=== PATIENT | male | born 1975 | race American Indian/Alaskan Native ===

== ENCOUNTER 2020-08-15 06:44 | Day surgery (SDC) | payer BC ==
[~2020-08-15 06:44] MED LIST: ceFAZolin/STERILE WATER 2 GM/20 ML SYRINGE IV NR
--- NOTE | 2020-08-15 07:25 | Anesthesia Consultation ---
Anesthesia Consult and Med Hx Date of service: 08/15/20 - Airway Anesthetic Teeth Evaluation: Good ROM Head & Neck: Adequate Mental/Hyoid Distance: Adequate Mallampati Class: Class II Intubation Access Assessment: Possibly Difficult - Pulmonary Exam CTA: Yes - Cardiac Exam Cardiac Exam: RRR - Pre-Operative Health Status ASA Pre-Surgery Classification: ASA2 Proposed Anesthetic Plan: General - Pulmonary Hx Smoking: No Hx Asthma: Yes ( CHILD ONLY) Hx Sleep Apnea: Yes (DX SLEEP APNEA , NO CPAP USE) - Cardiovascular System Hx Hypertension: Yes (X 3 YRS) - Central Nervous System Hx Psychiatric Problems: No - Hematic Hx Anemia: No - Other Systems Hx Cancer: No
--- NOTE | 2020-08-15 07:25 | Anesthesia Day of Surgery ---
Anesthesia Day of Surgery - Day of Surgery Patient Examined: Yes Patient H&P Reviewed: Yes Patient is NPO: Yes
[2020-08-15] MEDS ORDERED: MIDAZOLAM 2 MG/2 ML INJ IV NR (07:27)
[2020-08-15] MEDS ORDERED: LACTATED RINGERS 1,000 ML IV SCH (07:30)
[2020-08-15] MEDS ORDERED: HYDROmorphone 1 MG/1 ML INJ ONE (07:35)
[2020-08-15] MEDS ORDERED: propofoL 200 MG/20 ML VIAL IV ONE (07:35)
[2020-08-15] MEDS ORDERED: LIDOCAINE MPF (2%) 20 MG/1 ML VIAL 5 ML ONE (07:35)
[2020-08-15] MEDS ORDERED: ONDANSETRON 4 MG/2 ML INJ ONE (08:40)
[2020-08-15] MEDS ORDERED: KETOROLAC 30 MG/1 ML INJ ONE (08:40)
--- NOTE | 2020-08-15 08:44 | Short Stay Summary ---
Short Stay Documentation Date of service: 08/15/20 - History H&P: obtained from office Past Medical History: No medical history - Allergies and Medications Current Medications: Allergies No Known Allergies Allergy (Verified 08/13/20 10:20) Home Medications Medication Instructions Recorded Confirmed Last Taken Type Lisinopril [Zestril] 5 mg PO DAILY 08/13/20 08/13/20 Unknown History Active Medications Cefazolin Sodium (Cefazolin/Sterile Water 2 Gm/20 Ml Syringe) 2 gm IV PREOP NR Stop: 08/15/20 23:59 Lactated Ringer's (Lactated Ringers) 1,000 mls @ 100 mls/hr IV DIRECT CHRIS Midazolam HCl (Midazolam 2 Mg/2 Ml Inj) 2 mg IV ONCE NR Stop: 08/15/20 20:00 - Brief post op/procedure progress note Date of procedure: 08/15/20 Pre-op diagnosis: urethral stricture Post-op diagnosis: other (bladder stone) Procedure: cysto, dviu, rpg, removal bladder stone Anesthesia: GETA Surgeon: SARBJIT HENDERSON Estimated blood loss: none Condition: stable - Hospital course Hospital course: john & thai on chart - Disposition Condition at discharge: Stable Disposition: DC-01 TO HOME OR SELFCARE Short Stay Discharge Plan Follow up with: DR DEANN [Other] - 7 Days
--- NOTE | 2020-08-15 09:14 | Operative Report ---
DATE OF SURGERY: 08/15/2020 PREOPERATIVE DIAGNOSIS: Recurrent urethral stricture. POSTOPERATIVE DIAGNOSIS: 1. Recurrent urethral stricture. 2. Bladder stone. PROCEDURE: Cystoscopy, direct vision internal urethrotomy, bilateral retrograde pyelograms, removal of bladder stones. SURGEON: Michael Matias MD ANESTHESIA: General. ESTIMATED BLOOD LOSS: Minimal. FLUIDS: Crystalloid. COMPLICATIONS: No complications. INDICATIONS: This patient is a 45-year-old gentleman seen by Dr. Anthony in our group in the past with history of recurrent urethral strictures. Has been voiding well; however, presented to [facility] in July with difficulty urinating. Pedersen catheter was placed in the emergency room. He presents now for further evaluation. Discussed various treatment options including possible buccal mucosal graft and reconstruction. DESCRIPTION OF PROCEDURE: The patient was taken to the operative suite, placed in the dorsal lithotomy position, prepped and draped in a sterile fashion. Pedersen catheter was removed. Cystourethroscopy was performed. The patient had membranous urethral stricture with mild difficulty advancing the 20-[place] scope. Therefore, a 12 o'clock cut was made with the cold knife. I was able to advance the scope. His prostate displayed some mild trilobar obstruction. Bladder, obvious stone could be appreciated. No tumors were noted. Both ureteral orifices in normal position. Bilateral retrograde pyelograms were obtained with an 8-[place] catheter and 8 mL of contrast. No filling defects or obstruction. Next, using a grasper, small stone was removed without difficulty and will be sent for routine pathologic evaluation. A 0.035 Glidewire was placed. A 16-[place] tip catheter was advanced into the bladder without difficulty. Cystogram confirmed adequate position. Bladder was drained. Rectal exam was benign. He was extubated and taken to recovery room in stable condition. He will go home on [place] and [place]. Follow up in the office. TID: [id number] RECEIPT: [id number] SHARDA/YANDEL
[2020-08-15 10:11] VITALS: BP 148/90
--- NOTE | 2020-08-15 10:49 | Fluoroscopy Report ---
FLUOROSCOPY RETROGRADE UROGRAPHY FLUOROSCOPY RETROGRADE URETHROGRAM HISTORY: Enlarged prostate gland with lower UTI symptoms. Posttraumatic urethral stricture. FINDINGS: Fluoroscopy was provided by radiology during retrograde urography by the urologist. There i s normal filling of both renal collecting systems. No filling defect or abnormal dilatation is identi fied. No fluoroscopic images of the urethra are presented. Please correlate with the procedural repor t as needed. IMPRESSION: Unremarkable bilateral retrograde pyelograms Fluoroscopy time: 0.8 minutes Fluoroscopic images: 12 Signer Name: Ian Payne Jr, MD Signed: 08/15/2020 10:45 AM Workstation Name: [id number]
--- NOTE | 2020-08-15 15:41 | Post Anesthesia Evaluation ---
- Post Anesthesia Evaluation Patient Participated: Yes Airway Patent: Yes Stable Respiratory Function: Yes Nausea/Vomiting: No Temp > 96.8F: Yes Pain Manageable: Yes Adequeate Hydration: Yes Anesthesia Complications: No Block Receding Appropriately: Not Applicable Patient on Ventilator: No
== END 2020-08-15 10:40 | disposition home or self-care (01) ==
LOC: OR 06:44
PROVIDERS: ATTEND Urology
DX: N35.813 Other membranous urethral stricture, male (principal); N21.0 Calculus in bladder; I10 Essential (primary) hypertension; G47.30 Sleep apnea, unspecified; Z87.440 Personal history of urinary (tract) infections; Z98.890 Other specified postprocedural states; Z79.899 Other long term (current) drug therapy
CPT/HCPCS: 52005; 52276; 74420; C1769; J0690; J1170; J1885; J2250; J2405; J2704; J7120; Q9967; 74450